=== PATIENT | female | born 1990 | race Asian ===

== ENCOUNTER 2016-07-30 05:33 | Inpatient (IN) | payer OTHER ==
[~2016-07-30] VITALS: Ht 160 cm; Wt 83.5 kg
[2016-07-30] MEDS ORDERED: PRENATABS RX T1 EACH PO (06:03)
[2016-07-30] MEDS ORDERED: SYNTHROID150 MCG PO (06:04)
[2016-07-30] MEDS ORDERED: VITAMIN D1000 UNIT PO (06:05)
[2016-07-31 09:23] LABS: ABSOLUTE BASOPHIL COUNT 0 /CUMM (0.0-0.2); ABSOLUTE EOSINOPHIL COUNT 0.1 /CUMM (0.0-0.7); ABSOLUTE LYMPH COUNT 3.1 /CUMM (1.2-3.4); ABSOLUTE MONOCYTE COUNT 0.7 /CUMM (0.10-0.60); BASOPHIL % 0.4 % (0.0-2.0); EOSINOPHIL % 0.5 % (0-5); MEAN CORPUSCULAR HGB 27.9 PG (27.0-31.0); MEAN CORPUSCULAR HGB CONC 33.4 G/DL (33.0-37.0); MEAN CORPUSCULAR VOLUME 83.6 FL (81.0-99.0); MEAN PLATELET VOLUME 8.6 FL (7.4-10.4); PLATELET COUNT 213 /CUMM (130-400); RBC DISTRIBUTION WIDTH 18.2 % (11.5-14.5)
[2016-07-31 09:27] LABS: HEMATOCRIT 26.9 % (37-47); RED BLOOD CELL CT 3.22 /CUMM (4.20-5.40); WHITE BLOOD CELL COUNT 11.9 /CUMM (4.8-10.8)
--- NOTE | 2016-07-31 11:41 | PN- Post Delivery/GYN ---
Subjective Subjective: CASON C/O PAIN; NO FLATUS Review of Systems: NO FLATUS Objective Last 24 Hrs of Vital Signs/I&O VSS Physical Exam: INCISION C/D/I EXT NT Assessment/Plan Assessment/Plan S/P C/S POD2 CPM Problem List: 1. S/P
[2016-07-31 18:19] LABS: ABSOLUTE BASOPHIL COUNT 0.1 /CUMM (0.0-0.2); ABSOLUTE EOSINOPHIL COUNT 0 /CUMM (0.0-0.7); ABSOLUTE GRANULOCYTE CT 9.7 /CUMM (1.4-6.5); ABSOLUTE LYMPH COUNT 2.2 /CUMM (1.2-3.4); ABSOLUTE MONOCYTE COUNT 0.8 /CUMM (0.10-0.60); BASOPHIL % 0.4 % (0.0-2.0); EOSINOPHIL % 0.3 % (0-5); GRANULOCYTE % 75.5 % (42.2-75.2); HEMATOCRIT 30.1 % (37-47); MEAN CORPUSCULAR HGB 26.5 PG (27.0-31.0); MEAN CORPUSCULAR HGB CONC 33.1 G/DL (33.0-37.0); MEAN CORPUSCULAR VOLUME 80.1 FL (81.0-99.0); MEAN PLATELET VOLUME 7.4 FL (7.4-10.4); PLATELET COUNT 251 /CUMM (130-400); RBC DISTRIBUTION WIDTH 18.1 % (11.5-14.5); RED BLOOD CELL CT 3.75 /CUMM (4.20-5.40); WHITE BLOOD CELL COUNT 12.8 /CUMM (4.8-10.8)
--- NOTE | 2016-08-01 12:09 | PN- Post Delivery/GYN ---
Subjective Subjective: NO C/O Review of Systems: NEG Objective Last 24 Hrs of Vital Signs/I&O VSS Physical Exam: INCISION C/D/I EXT NT Assessment/Plan Assessment/Plan S/P C/S POD2 STABLE CPM CIRC Problem List: 1. S/P
[2016-08-01] MEDS ORDERED: DOCUSATE SODIU100 M3 PO (12:10)
[2016-08-01] MEDS ORDERED: IBUPROFEN800 M1 PO (12:10)
[2016-08-01] MEDS ORDERED: PERCOCET 5-3251 EACH PO (12:10)
--- NOTE | 2016-08-09 18:14 | Operative Report ---
Operative/Inv Procedure Report Surgery Date: 07/30/16 Name of Procedure: Repeat low flap transverse section via Pfannenstiel skin incision Pre-Operative Diagnosis: Previous section term Post-Operative Diagnosis: Same Estimated Blood Loss: less than 50ml Surgeon/Legal Support Specialist: MICHELLE ORTEGA,CONSUELO Rivera and Dr. Cristo Khan Anesthesia: block Operative/Procedure Note Note: She was taken the operating placed supine position after adequate induction of spinal narcotic anesthesia skin was tested found to be adequate for surgery through an old Pfannenstiel skin incision skin was cut after the abdomen had been prepped and draped so fashion carried down to rectus fascia using a second knife was cut in curvilinear fashion I direction curved males peritoneal cavity was entered high into the abdomen to avoid the bladder low blade the Gaston was placed and lower in the incision the visceral peritoneum the uterus was dissected anteriorly to develop a bladder flap in the lower uterine segment the uterus was nicked entered with the back of knife dissected bluntly as well as sharply and the infant was delivered over the abdominal wall cord was doubly clamped and cut infant was handed protective signal installer was waiting delivering to aid in resuscitation placenta was delivered manually noted to be intact was wiped clean with 2 wet dry laps to ensure was free of adherent membranes was oversewn running locking suture was indicated interrupted [id number] is well peritoneal cavity was irrigated close amounts warm sounds are clear peritoneum was reapproximated using 30 the fascia was reapproximated to continue sutures #1 skin was reapproximated hannah after Bovie coagulation subcutaneous tissue at the end the case counts correct urine was clear mom and was transported recovery room awake alert counts correct
--- NOTE | 2016-08-09 18:19 | Surgical Discharge Summary ---
Visit Information Visit Dates Admission Date: 07/30/16 Discharge Date: 08/02/16 History of Present Illness Chief Complaint: to have my baby Medical History Isolation History: Standard Tetanus Vaccine: 04/20/12 Surgical History Pertinent Surgical History: Psychosocial History Who Do You Live With? Family What is Your Primary Language? [facility] Review of Systems: -13 point review of systems Hospital Course Course Attending Physician: CONSUELO MARTINEZ MD Primary Care Physician: PATIENT HAS NO PRIMARY CARE DR Hospital Course: Patient was admitted for a repeat section she did well first postoperative day showed a clear liquid diet second postoperative day she was advanced to regular diet she was urinating freely without use of Mehta and on third postoperative day she was discharged home on with the following physical exam she is a on a short female HEENT anicteric lungs clear abdomen soft incision clean dry and intact with hannah in place fundus firm lochia minimal extremities +1 edema negative Homans Allergies: Coded Allergies: No Known Allergies (07/30/16) Disposition Summary Disposition Principal Diagnosis: Status post repeat low flap transverse section Additional Diagnosis: Anemia Discharge Disposition: home or self care Discharge Instructions General Discharge Information Code Status: Full Code Patient's Diet: Regular Patient's Activity: Pelvic rest no heavy lifting greater than 15 pounds for 6 weeks nothing the vagina for 6 weeks Follow-Up Instructions/Appts: My office 2 weeks hannah to be removed the return visit Medications at Discharge Discharge Medications: Continue taking these medications: Vit #76/Iron,Carb/FA (Prenatabs Rx Tablet) 29 MG IRON-1 MG TABLET 1 Tablet ORAL DAILY Levothyroxine Sodium (Synthroid) 150 MCG TABLET 1 Tablet ORAL DAILY Cholecalciferol (Vitamin D3) (Vitamin D) 1,000 UNIT TABLET 1 Tablet ORAL DAILY Start taking the following new medications: Ibuprofen (Ibuprofen) 800 MG TABLET 800 Milligram ORAL EVERY SIX HOURS NEEDED as needed for UTERINE CRAMPING Qty = 36 No Refills Comments: Last Taken:08/02/16 Time:0754 Oxycodone HCl/Acetaminophen (Percocet 5-325 MG Tablet) 5 MG-325 MG TABLET 1 Tablet ORAL EVERY 4 HOURS NEEDED as needed for PAIN SCALE 4-6 (MODERATE ) Qty = 16 No Refills Comments: Last Taken:08/02/16 Time:0155 Docusate Sodium (Docusate Sodium) 100 MG CAPSULE 100 Milligram ORAL AT BEDTIME as needed for STOOL SOFTENER Qty = 60 No Refills Comments: Last Taken:08/02/16 Time:1938
== END 2016-08-02 09:45 | DRG 540 ==
LOC: GNO 05:33
PROVIDERS: Obstetrics & Gynecology; ADMIT Specialist
PROC: 10D00Z1 Extraction of Products of Conception, Low, Open Approach (ICD-10-PCS; principal; 2016-07-30)
DX: O34.211 Maternal care for low transverse scar from previous cesarean delivery (principal); N85.8 Other specified noninflammatory disorders of uterus; Z3A.39 39 weeks gestation of pregnancy; Z37.0 Single live birth
CPT/HCPCS: GNOS; 81001; 87086; J0690; J1200; J1650; J1885